=== PATIENT | female | born 2000 | race Caucasian/White ===

== ENCOUNTER 2020-01-26 18:37 | Emergency (ER) | payer OTHER ==
[2020-01-26 18:50] VITALS: BP 129/76
[2020-01-26] MEDS ORDERED: IBUPROFEN 800 MG TABLET PO ONE (19:22)
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
== END 2020-01-26 19:27 | disposition home or self-care (01) ==
LOC: ER 18:37
DX: R51 Headache (principal); M54.5 Low back pain; M79.18 Myalgia, other site; M54.2 Cervicalgia; V43.62XA Car passenger injured in collision with other type car in traffic accident, initial encounter
CPT/HCPCS: 99284